=== PATIENT | female | born 2005 | race American Indian/Alaskan Native ===

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

== ENCOUNTER 2023-02-02 16:18 | Emergency (ER) | payer MEDICAID ==
[2023-02-02 16:33] VITALS: BP 126/83; PULSE 123
== END 2023-02-02 17:05 | disposition home or self-care (01) ==
LOC: DL.ED 16:18
DX: S62.316A Displaced fracture of base of fifth metacarpal bone, right hand, initial encounter for closed fracture (principal); W20.8XXA Other cause of strike by thrown, projected or falling object, initial encounter
CPT/HCPCS: 29125; 73130-RT; 99282; 99284

== ENCOUNTER 2023-05-15 18:47 | Emergency (ER) | payer MEDICAID ==
[2023-05-15] MEDS ORDERED: Ondansetron 4 MG/2 ML SDV IVPUSH ONE ×2 (19:07→19:08)
[2023-05-15] MEDS ORDERED: Sodium Chloride 0.9% 1,000 ML IV ONE ×2 (19:08→20:09)
[2023-05-15] MEDS ORDERED: Codeine/guaiFENesin 10-100 MG/5 ML Syrup 5 ML Cup PO ONE (19:08)
[2023-05-15] MEDS ORDERED: Ketorolac 30 MG/ML SDV IVPUSH ONE (19:09)
[2023-05-15 19:10] VITALS: BP 136/83; PULSE 153
[2023-05-15 19:57] LABS: CORONAVIRUS COVID-19 NAA NEGATIVE (NEGATIVE); INFLUENZA A NAA POSITIVE (NEGATIVE); INFLUENZA B NAA NEGATIVE (NEGATIVE)
[2023-05-15] MEDS ORDERED: Take Home: Benzonatate 100 MG, 6 Cap Pack PO ONE (20:24)
[2023-05-15] MEDS ORDERED: Take Home: Ondansetron 4 MG Tab.DIS, 5 Tab Pack PO ONE (20:24)
== END 2023-05-15 20:37 | disposition home or self-care (01) ==
LOC: DL.ED 18:47
DX: J10.1 Influenza due to other identified influenza virus with other respiratory manifestations (principal)
CPT/HCPCS: 0240U; 96361; 96374; 96375; 99283; 99284-25; A9270-GY; J1885; J2405; J7030; Q0162

== ENCOUNTER 2023-08-31 05:48 | Emergency (ER) | payer MEDICAID ==
[2023-08-31 06:28] LABS: BASOPHILS PERCENT AUTO 0.1 % (0.0-1.0); HEMATOCRIT 45.5 % (37.0-47.0); HEMOGLOBIN 15.4 g/dL (12.0-16.0); LYMPHOCYTES PERCENT AUTO 6.3 % (20.5-50.1); MEAN CORPUSCULAR HEMOGLOBIN 29.2 pg (27.0-34.0); MEAN CORPUSCULAR HGB CONC 33.8 g/dL (33.0-35.0); MEAN CORPUSCULAR VOLUME 86.3 fL (80-100); MONOCYTES PERCENT AUTO 5.8 % (2-8); NEUTROPHILS PERCENT AUTO 87.8 % (42.2-75.2); PLATELET COUNT,PLT 289 10^3/uL (150-450); RED BLOOD CELL COUNT 5.27 10^6/uL (4.2-5.4); WHITE BLOOD CELL COUNT,WBC 13.7 10^3/uL (5.0-10.0)
[2023-08-31 06:29] VITALS: BP 132/77; PULSE 118
[2023-08-31 06:30] LABS: APPEARANCE,URINE CLOUDY (CLEAR); BILIRUBIN,URINE NEGATIVE (NEGATIVE); COLOR,URINE YELLOW (YELLOW); GLUCOSE,URINE NEGATIVE (NEGATIVE); KETONES,URINE TRACE (NEGATIVE); LEUKOCYTE ESTERASE,URINE SMALL (NEGATIVE); NITRITE,URINE NEGATIVE (NEGATIVE); OCCULT BLOOD,URINE SMALL (NEGATIVE); PH,URINE 5.5 (5.0-9.0); PROTEIN,URINE 100 (NEGATIVE); UROBILINOGEN,URINE 0.2 mg/dL (0.2-1.0)
[2023-08-31] MEDS: Iopamidol 612 MG/ML 100 ML Bottle IVPUSH ONE (06:52)
[2023-08-31 06:57] LABS: A/G RATIO 1.1; ALANINE AMINOTRANSFERASE,ALT 23 U/L (14-59); ALBUMIN 4.2 g/dL (3.4-5.0); ALKALINE PHOSPHATASE 77 U/L (46-116); ANION GAP 21.7 mEq/L (7-13); ASPARTATE AMNIOTRANSFERASE,AST 13 U/L (15-37); BILIRUBIN TOTAL 0.3 mg/dL (0.2-1.0); BLOOD UREA NITROGEN,BUN 8 mg/dL (7-18); BUN/CREATININE RATIO 10.3 (No establ ref range); CALCIUM 8.8 mg/dL (8.5-10.1); CARBON DIOXIDE,CO2 20 mmol/L (21-32); CHLORIDE,CL 106 mmol/L (98-107); CREATININE 0.78 mg/dL (0.55-1.02); GLUCOSE RANDOM 100 mg/dL (70-99); LIPASE 21 U/L (16-77); POTASSIUM,K 3.7 mmol/L (3.5-5.1); PROTEIN TOTAL,TP 7.9 g/dL (6.4-8.2); SODIUM,NA 144 mmol/L (136-145)
[2023-08-31 06:58] LABS: ESTIMATED GFR 112 mL/min (>=60)
[2023-08-31 07:03] LABS: BACTERIA,URINE MODERATE /HPF (0-FEW/HPF); MUCUS,URINE RARE /LPF (NOT SEEN); RBC,URINE 0-5 /HPF (0-5)
[2023-08-31 07:04] LABS: EPITHELIAL CELLS,URINE MANY /HPF (NOT SEEN)
[2023-08-31] MEDS: Sodium Chloride 0.9% 1,000 ML IV ONE (07:29)
[2023-08-31 08:13] LABS: AMPHETAMINES,URINE NEGATIVE (NEGATIVE); BARBITURATES,URINE NEGATIVE (NEGATIVE); BENZODIAZEPINE,URINE NEGATIVE (NEGATIVE); MDMA (ECSTASY), URINE NEGATIVE (NEGATIVE); METHADONE,URINE NEGATIVE (NEGATIVE); METHAMPHETAMINES,URINE NEGATIVE (NEGATIVE); OPIATES,URINE NEGATIVE (NEGATIVE); OXYCODONE,URINE NEGATIVE (NEGATIVE); PHENCYCLIDINE,URINE NEGATIVE (NEGATIVE); TCA,URINE NEGATIVE (NEGATIVE)
[2023-09-04 11:47] LABS: C.TRACHOMATIS BY TMA Negative (Negative); M GENITALIUM Positive (Negative); M GENITALIUM SOURCE Urine; N.GONORRHOEAE BY TMA Negative (Negative); SOURCE Urine
== END 2023-08-31 08:25 | disposition home or self-care (01) ==
LOC: DL.ED 05:48
DX: S06.0XAA Concussion with loss of consciousness status unknown, initial encounter (principal); F10.929 Alcohol use, unspecified with intoxication, unspecified; N76.0 Acute vaginitis; F12.10 Cannabis abuse, uncomplicated; Y04.0XXA Assault by unarmed brawl or fight, initial encounter; Y90.6 Blood alcohol level of 120-199 mg/100 ml
CPT/HCPCS: 36415; 70450; 71045; 73130; 74177; 80053; 80305; 80307; 81001; 81025; 83690; 85025; 87086; 87491; 87563; 87591; 96360; 99284; 99285; J7030; Q9967

== ENCOUNTER 2023-11-15 22:27 | Emergency (ER) | payer MEDICAID ==
[2023-11-15 22:44] VITALS: BP 132/96; PULSE 64
== END 2023-11-15 23:08 | disposition home or self-care (01) ==
LOC: DL.ED 22:27
DX: F41.9 Anxiety disorder, unspecified (principal)
CPT/HCPCS: 99283; 99284

== ENCOUNTER 2024-09-26 16:21 | Emergency (ER) | payer MEDICAID ==
[2024-09-26 16:31] VITALS: BP 123/81; PULSE 100
== END 2024-09-26 16:48 | disposition home or self-care (01) ==
LOC: DL.ED 16:21
DX: B07.0 Plantar wart (principal)
CPT/HCPCS: 17110; 99282; 99283-25

== ENCOUNTER 2024-11-14 11:43 | Emergency (ER) | payer MEDICAID | END 2024-11-14 12:58 | disposition home or self-care (01) | LOC: DL.ED 11:43 | DX: J02.9 Acute pharyngitis, unspecified (principal) | CPT/HCPCS: 87081; 87430; 99284; A9270 ==

== ENCOUNTER 2024-11-18 03:41 | Emergency (ER) | payer MEDICAID ==
[2024-11-18 05:28] VITALS: BP 129/77; PULSE 85
== END 2024-11-18 05:20 ==
LOC: DL.ED 03:41
DX: T74.21XA Adult sexual abuse, confirmed, initial encounter (principal)
CPT/HCPCS: 99285

== ENCOUNTER 2024-11-28 00:23 | Emergency (ER) | payer MEDICAID ==
[2024-11-28 00:55] VITALS: BP 129/74; PULSE 84
== END 2024-11-28 02:30 | disposition left against medical advice (07) ==
LOC: DL.ED 00:23
DX: S60.222A Contusion of left hand, initial encounter (principal); W23.1XXA Caught, crushed, jammed, or pinched between stationary objects, initial encounter; Y93.89 Activity, other specified
CPT/HCPCS: 73140-FA; 99283; A9270-GY

== ENCOUNTER 2025-02-10 07:43 | Emergency (ER) | payer MEDICAID ==
[2025-02-10 07:49] VITALS: BP 104/86; PULSE 79
[2025-02-10] MEDS: Diphtheria,Pertussis(Acell),Tetanus Vaccine 0.5 ML Syringe IM ONE (08:06)
[2025-02-10] MEDS: Lidocaine 1% with EPINEPHrine 1:100,000 20 ML MDV INJECT ONE (08:06)
[2025-02-10] MEDS: Lidocaine 1% with EPINEPHrine 1:100,000 20 ML MDV ONE (08:26)
== END 2025-02-10 08:19 | disposition home or self-care (01) ==
LOC: DL.ED 07:43
DX: S51.811A Laceration without foreign body of right forearm, initial encounter (principal); Z23 Encounter for immunization; X58.XXXA Exposure to other specified factors, initial encounter; Y93.89 Activity, other specified
CPT/HCPCS: 12002; 73090; 90471; 90715; 99283; J2004

== ENCOUNTER 2025-03-10 17:42 | Emergency (ER) | payer SELFPAY ==
[2025-03-10] MEDS ORDERED: Sodium Chloride 0.9% 10 ML Syringe FLUSH PRN (18:01)
[2025-03-10] MEDS: Ondansetron 4 MG/2 ML SDV IVPUSH ONE (18:30)
[2025-03-10 18:51] VITALS: BP 121/80; PULSE 81
== END 2025-03-10 19:14 | disposition home or self-care (01) ==
LOC: DL.ED 17:42
DX: S52.611A Displaced fracture of right ulna styloid process, initial encounter for closed fracture (principal); Y04.8XXA Assault by other bodily force, initial encounter
CPT/HCPCS: 73110; 96374; 96375; 99284; J2270; J2405; 29125; 99283